=== PATIENT | female | born 1965 | race African-American/Black ===

== ENCOUNTER → 2021-05-14 | Day surgery (SDC) | payer OTHER ==
[~2021-05-14] VITALS: Ht 165.1 cm; Wt 100.0 kg
[~2021-05-14] MED LIST: ASPI-630 PO; ATEN25TA PO; HYDR12.575 PO; HYDROmorphone 2 MG/ML VIAL IVP PRN; IV RINGERS,LACTATED 1000ML 1,000 ML IV SCH; LINA5TAB PO; LISI-130 PO; MORPHINE SULFATE 2 MG/ML INJ. IVP PRN; MV,1TABL3 PO; POTA500T5 PO; PROCHLORPERAZINE 10 MG/2 ML VIAL. IVP PRN; PROPOFOL 10 MG/ML (20ML) VIAL. IV ONE; fentaNYL PF VIAL 100 MCG/2 ML VIAL IVP PRN
[2021-05-14 10:15] VITALS: BP 177/81
--- NOTE | 2021-05-14 16:28 | HP ---
DATE OF SERVICE: 05/14/2021 ADMIT DATE: 05/14/2021 UPDATED HISTORY AND PHYSICAL REASON: Family history of colon cancer. HISTORY: A 55-year-old female whose past medical history is significant for diabetes, hypertension, sleep apnea, seen for screening colon exam. Last exam was done approximately 5 years ago, which was unrevealing. Positive family history of colon cancer was apparent. There has been no diarrhea, constipation, melena and/or hematochezia. Her weight has been decreased and she underwent a gastric sleeve procedure. She is otherwise without additional complaints. PAST MEDICAL HISTORY: Hypertension, diabetes, sleep apnea, status post gastric sleeve. MEDICATIONS: Include aspirin, atenolol, hydrochlorothiazide, lisinopril. ALLERGIES: DIPHENHYDRAMINE AND PSEUDOEPHEDRINE. FAMILY AND SOCIAL HISTORY: Significant for colon cancer in parents. Does not drink or smoke. PAST SURGICAL HISTORY: Status post , breast surgery, cholecystectomy, tubal ligation, gastric sleeve. REVIEW OF SYSTEMS: Per records. PHYSICAL EXAMINATION: GENERAL: Reveals a well-nourished, well-developed female who is alert, cooperative, in no acute distress. VITAL SIGNS: Pulse is 75, respiratory rate is 18, temperature is 97.4. LUNGS: Clear. CARDIOVASCULAR: Reveals an S1, S2, without S3, S4 or appreciable murmur. ABDOMEN: Reveals a soft abdomen, normal bowel sounds, without appreciable hepatosplenomegaly. The surgical incision is noted. EXTREMITIES: Reveals no cyanosis, clubbing or edema. IMPRESSION: Family history of colon cancer. Surveillance exam is recommended at this time. Risks and benefits have been previously discussed with the patient including risk of hemorrhage and perforation and is willing to proceed. ARIADNA DR: Fidel TID: [id number]
== END | disposition home or self-care (01) ==
LOC: ENDOS 08:52
PROVIDERS: ATTEND Internal Medicine Gastroenterology
DX: Z12.11 Encounter for screening for malignant neoplasm of colon (principal); K64.0 First degree hemorrhoids; K57.30 Diverticulosis of large intestine without perforation or abscess without bleeding; K63.89 Other specified diseases of intestine; I10 Essential (primary) hypertension; E11.9 Type 2 diabetes mellitus without complications; G47.30 Sleep apnea, unspecified; Z90.49 Acquired absence of other specified parts of digestive tract; Z98.51 Tubal ligation status; Z98.890 Other specified postprocedural states; Z79.82 Long term (current) use of aspirin; Z79.84 Long term (current) use of oral hypoglycemic drugs; Z79.899 Other long term (current) drug therapy; Z80.0 Family history of malignant neoplasm of digestive organs; Z88.8 Allergy status to other drugs, medicaments and biological substances
CPT/HCPCS: 45378; J2704